=== PATIENT | female | born 1990 | race African-American/Black ===

== ENCOUNTER 2021-10-13 04:18 | Emergency (ER) | payer OTHER, MEDICAID ==
[~2021-10-13] VITALS: Ht 175.3 cm; Wt 84.0 kg
[2021-10-13] MEDS ORDERED: KETOROLAC 60MG/2ML VIAL IM ONE (05:15)
[2021-10-13] MEDS ORDERED: TRAMADOL 50MG TABLET PO ONE (06:15)
[2021-10-13] MEDS ORDERED: NAPR-681 MT (07:08)
[2021-10-13 07:39] VITALS: BP 130/80
== END 2021-10-13 07:54 | disposition home or self-care (01) ==
LOC: ER 04:18
DX: S99.821A Other specified injuries of right foot, initial encounter (principal); Z98.890 Other specified postprocedural states; Z88.0 Allergy status to penicillin; W22.8XXA Striking against or struck by other objects, initial encounter; Y93.89 Activity, other specified; Y92.89 Other specified places as the place of occurrence of the external cause; Y99.8 Other external cause status
CPT/HCPCS: 73610; 73630; 81025; 96372; 99284; J1885